=== PATIENT | female | born 1980 | race African-American/Black ===

== ENCOUNTER 2017-10-20 09:43 | Observation (INO) | payer OTHER ==
[~2017-10-20] VITALS: Ht 170.2 cm; Wt 134.8 kg
[2017-10-20] MEDS ORDERED: CLONIDINE HCL 0.2 MG TAB PO ONE (10:15)
[2017-10-20 10:33] LABS: BASOPHILS % 0.4 % (0.0-1.0); EOSINOPHILS # (AUTO) 0.3 (0.0-0.4); EOSINOPHILS % 3.1 % (0.0-6.0); HEMATOCRIT 32.9 % (34.2-44.1); HEMOGLOBIN 10.4 g/dL (12.0-16.0); LYMPHOCYTES # (AUTO) 3.3 (1.0-3.2); LYMPHOCYTES % 32.8 % (18.0-39.1); MEAN CORPUSCULAR HEMOGLOBIN 28.2 pg (28-32); MEAN CORPUSCULAR HGB CONC 31.6 g/dL (31-35); MEAN CORPUSCULAR VOLUME 89.2 fL (81-99); MONOCYTES % 10.3 % (4.4-11.3); NEUTROPHILS # (AUTO) 5.4 (2.1-6.9); NEUTROPHILS % 53.2 % (38.7-80.0); PLATELET COUNT 387 x10e3/uL (140-360); RED BLOOD COUNT 3.69 x10e6/uL (3.6-5.1); RED CELL DISTRIBUTION WIDTH 15.1 % (11.7-14.4)
[2017-10-20 10:53] LABS: CALCIUM 9.3 mg/dL (8.4-10.2); CREATININE, SERUM 3.33 mg/dL (0.57-1.11)
--- NOTE | 2017-10-20 11:46 | Diagnostic Imaging Report ---
PROCEDURE:KNEE RIGHT THREE VIEWS TECHNIQUE:AP, lateral and oblique views right knee INDICATION:Twisted right knee COMPARISON:None. FINDINGS: The right in image regional skeleton are intact and in anatomic alignment. Enthesopathy of the patella and medial tibial spine. Small effusion. CONCLUSION: Enthesopathy without evidence of fracture or traumatic malalignment. Small joint effusion. Dictated by: Pa Quinteros M.D. on 10/20/2017 at 11:48 Electronically approved by: Pa Quinteros M.D. on 10/20/2017 at 11:48
--- OUTSIDE RECORDS SUMMARY | 2017-10-20 11:54 | XMS REPORT ---
Author [facility] Address Unknown Phone Unavailable Care Team Providers Care Explosive Ordnance Handler Name Role Phone CLARA ASTUDILLO Unavailable Unavailable Problems This patient has no known problems. Allergies, Adverse Reactions, Alerts This patient has no known allergies or adverse reactions. Medications This patient has no known medications. Results Test Description Test Time Test Comments Text Results Atomic Results Result Comments KNEE RIGHT THREE VIEWS [place] [address] Patient Name: EDDIE RIVERO MR #: [id number] : 1980 Age/Sex: 36/F Req #: [id number] [facility] [place] Physician: Ordered by: CRYSTAL WEBBER [employer]' COORDINATOR Report #: [id number] Location: ER Room/Bed: Procedure: [id number] DX/KNEE RIGHT THREE VIEWS Exam Date: 10/20/17 Exam Time: 1040 REPORT STATUS: Signed PROCEDURE: KNEE RIGHT THREE VIEWS TECHNIQUE: AP, lateral and oblique views right knee INDICATION: Twisted right knee COMPARISON: None. FINDINGS: The right in image regional skeleton are intact and in anatomic alignment. Enthesopathy of the patella and medial tibial spine. Small effusion. CONCLUSION: Enthesopathy without evidence of fracture or traumatic malalignment. Small joint effusion. Dictated by: Sarah Quinteros M.D. on 10/20/2017 at 11:48 Electronically approved by: Sarah Quinteros M.D. on 10/20/2017 at 11:48 Dictated By: SARAH QUINTEROS MD [id number] Transcribed By: NAVIN on 10/20/17 1148 COPY TO: CRYSTAL WEBBER NP
[2017-10-20 13:15] VITALS: BP 145/69
[2017-10-20 15:39] VITALS: BP 131/71
[2017-10-20] MEDS ORDERED: CLONIDINE HCL 0.1 MG TAB PO PRN (15:45)
[2017-10-20] MEDS ORDERED: SODIUM CHLORIDE 0.9% 500ML 500 ML IV ONE (15:45)
[2017-10-20] MEDS: NIFEDIPINE CR 30 MG TAB PO SCH (16:07)
[2017-10-20 19:55] VITALS: BP 136/91
[2017-10-20 21:49] VITALS: BP 136/91
[2017-10-21] VITALS: BP 147/98
[2017-10-21 05:00] VITALS: BP 124/74
[2017-10-21] MEDS: ACETAMINOPHEN 325 MG TAB PO PRN ×2 (06:21→11:30)
[2017-10-21 06:54] LABS: ANION GAP 11.2 mmol/L (8-16); CALCIUM 9.3 mg/dL (8.4-10.2); CREATININE, SERUM 3.34 mg/dL (0.57-1.11); POTASSIUM 5.2 mmol/L (3.5-5.1)
[2017-10-21 08:13] VITALS: BP 148/91
[2017-10-21] MEDS: NIFEDIPINE CR 30 MG TAB PO SCH (09:27)
[2017-10-21 12:15] VITALS: BP 148/93
[2017-10-21] MEDS ORDERED: PROCARDIA XL30 MG PO (13:39)
[2017-10-21 15:00] VITALS: BP 150/98
--- NOTE | 2017-10-22 14:34 | Discharge Summary ---
PRIMARY CARE DOCTOR: Dr. Maggy Carter with [facility]. FINAL DIAGNOSIS: Right knee sprain. SECONDARY DIAGNOSES 1. Stage 4 chronic kidney disease due to chronic hypertension. 2. 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 3. Uncontrolled hypertension, better. CONSULTANTS: None. PROCEDURES/STUDIES PERFORMED: None. HISTORY: Per [facility] HOSPITAL COURSE: Empirically, the patient received some IV fluids, however this did not really change her creatinine. Her estimated GFR hovers around 16 to 19. The patient initially came in with a systolic blood pressure of 190. Currently with nifedipine XL 30 mg daily, her systolic blood pressure is in the 140s now. I have the patient and her family that at this time we do not want to shoot for a normal blood pressure of 120. The patient already has a dental financial coordinator, she will follow up as soon as possible. The patient was seen and examined today. CONDITION ON DISCHARGE: Stable. DISCHARGE MEDICATIONS: Please see medication reconciliation form. JOEY DURAN M.D. Job#: [id number] GE cc:MAGGY CARTER MD
== END 2017-10-21 15:39 | disposition home or self-care (01) ==
LOC: ER 09:43 → ERHOLD 11:52 → INTOOBSV 11:52 → IMCU 12:31
PROVIDERS: ADMIT Internal Medicine; ATTEND Internal Medicine
DX: I16.0 Hypertensive urgency (principal); N17.9 Acute kidney failure, unspecified; M25.461 Effusion, right knee; S83.411A Sprain of medial collateral ligament of right knee, initial encounter; X50.1XXA Overexertion from prolonged static or awkward postures, initial encounter; I13.10 Hypertensive heart and chronic kidney disease without heart failure, with stage 1 through stage 4 chronic kidney disease, or unspecified chronic kidney disease; N18.4 Chronic kidney disease, stage 4 (severe); Z90.5 Acquired absence of kidney
CPT/HCPCS: 29799; 36415 ×2; 73562; 80048 ×2; 85025; 93005; 99284; G0378 ×2; J7040

== ENCOUNTER 2018-07-02 10:46 | Emergency (ER) | payer OTHER ==
[~2018-07-02] VITALS: Ht 170.2 cm; Wt 134.7 kg
[~2018-07-02 10:46] MED LIST: PROCARDIA XL30 MG PO
--- OUTSIDE RECORDS SUMMARY | 2018-07-02 10:48 | XMS REPORT | Clinical Summary ---
Author Author [facility] Address Unknown Phone Unavailable Care Team Providers Care Coding And Reimbursement Specialist Name Role Phone Maggy Ro MD PCP Abdon Mccray MD 3 Jem Chavez MD 3 Tierney Aguirre Unavailable Allergies Not on File Medications Not on file Active Problems Not on file Encounters Care Team Description Date Type Specialty Nellie 03/29/2018 Abstract Transplant Nellie 03/29/2018 Abstract Transplant after 07/01/2017 Social History Date Tobacco Use Types Packs/Day Years Used Never Smoker Sex Assigned at Date Recorded Not on file Industry Job Start Date Occupation Not on file Not on file Not on file Travel End Travel History Travel Start No recent travel history available. Last Filed Vital Signs Time Taken Vital Sign Reading - Blood Pressure - - Pulse - - Temperature - - Respiratory Rate - - Oxygen Saturation - - Inhaled Oxygen - Concentration 03/29/2018 3:09 PM BUILDING RENTAL MANAGER Weight 140.6 kg (310 lb) 03/29/2018 3:09 PM BUILDING RENTAL MANAGER Height 170.2 cm (5' 7") 03/29/2018 3:09 PM BUILDING RENTAL MANAGER Body Mass Index 48.55 Plan of Treatment Not on file Results Not on fileafter 07/01/2017 Insurance Payer Benefit Subscriber ID Type Phone Address Plan / Group [facility] xxxxxxxxxxxxx [phone] [facility]
== END 2018-07-02 11:09 | disposition home or self-care (01) ==
LOC: ER 10:46
DX: K08.89 Other specified disorders of teeth and supporting structures (principal); K02.9 Dental caries, unspecified; K04.7 Periapical abscess without sinus
CPT/HCPCS: 99282

== ENCOUNTER 2019-04-02 11:34 | Emergency (ER) | payer SELFPAY ==
[~2019-04-02] VITALS: Ht 170.2 cm; Wt 134.7 kg
[2019-04-02] MEDS ORDERED: SODIUM CHLORIDE 0.9% 1000ML 1,000 ML IV STA (12:06)
[2019-04-02] MEDS ORDERED: NIFEDIPINE CR 30 MG TAB PO ONE (12:15)
[2019-04-02 12:40] LABS: BILIRUBIN,URINE NEGATIVE (NEGATIVE); CLARITY,URINE CLEAR (CLEAR); COLOR,URINE YELLOW (YELLOW); KETONES,URINE NEGATIVE (NEGATIVE); LEUKOCYTE ESTERASE ,URINE NEGATIVE (NEGATIVE); NITRITE,URINE NEGATIVE (NEGATIVE); PREGNANCY TEST, URINE NEGATIVE (NEGATIVE); PROTEIN,URINE DIPSTICK 2+ (NEGATIVE); URINE UROBILINOGEN 0.2 mg/dL (0.2 - 1)
[2019-04-02 13:01] LABS: AMORPHOUS SEDIMENT,URINE FEW (FEW); BACTERIA,URINE MODERATE /HPF; EPITHELIAL CELLS,URINE MODERATE /LPF
[2019-04-02 13:51] LABS: BASOPHILS % 0.2 % (0.0-1.0); EOSINOPHILS # (AUTO) 0.5 (0.0-0.4); EOSINOPHILS % 5.3 % (0.0-6.0); HEMATOCRIT 29.6 % (34.2-44.1); LYMPHOCYTES % 31.5 % (18.0-39.1); MEAN CORPUSCULAR HEMOGLOBIN 27.5 pg (28-32); MEAN CORPUSCULAR HGB CONC 30.4 g/dL (31-35); MEAN CORPUSCULAR VOLUME 90.5 fL (81-99); MONOCYTES % 10.7 % (4.4-11.3); PLATELET COUNT 356 x10e3/uL (140-360); RED BLOOD COUNT 3.27 x10e6/uL (3.6-5.1); RED CELL DISTRIBUTION WIDTH 16.1 % (11.7-14.4)
[2019-04-02 14:13] LABS: ALBUMIN 3.2 g/dL (3.5-5.0); ALBUMIN/GLOBULIN RATIO 0.9 (0.8-2.0); ANION GAP 9.9 mmol/L (8-16); CALCIUM 9.3 mg/dL (8.4-10.2); CREATININE, SERUM 5.15 mg/dL (0.57-1.11); MAGNESIUM 1.9 MG/DL (1.3-2.1); POTASSIUM 4.9 mmol/L (3.5-5.1)
--- NOTE | 2019-04-02 15:48 | Diagnostic Imaging Report ---
CT of the abdomen and pelvis, without contrast, 04/02/2019. History: Abdominal pain. Comparison: None available. Technique: Multidetector CT scanning of the abdomen and pelvis was performed from the level of the lung bases to the inferior pubic rami without intravenous or oral contrast. Coronal and sagittal multiplanar reformations were obtained. RADIATION DOSE: Total DLP: 811 mGy*cm Dose modulation, iterative reconstruction, and/or weight based adjustment of the mA/kV was utilized to reduce the radiation dose to as low as reasonably achievable. Discussion: Examination is limited without contrast. Lung bases: No visualized abnormalities. Abdomen: The right kidney is absent. Left kidney is normal in position and size. No evidence of left nephrolithiasis or hydronephrosis. The liver, gallbladder, biliary tree, spleen, pancreas, and adrenal glands are unremarkable. The abdominal aorta is within normal limits. The appendix is visualized and is normal. There is no bowel dilatation. There is no evidence of adenopathy or free fluid. A tiny fat-containing umbilical hernia is present. Pelvis: The bladder, uterus, and adnexa are unremarkable. Calcified phleboliths are present bilaterally. There is no evidence of free fluid or adenopathy. Bones and soft tissues: Advanced degenerative changes are present at L4-L5 without evidence of lytic or sclerotic lesion. IMPRESSION: Absent right kidney. No evidence of left-sided nephrolithiasis or hydronephrosis. Otherwise unremarkable noncontrast exam. Signed by: Db Arrington on 04/02/2019 3:45 PM
[2019-04-02 16:10] VITALS: BP 168/94
--- NOTE | 2019-04-02 16:15 | Diagnostic Imaging Report ---
Chest, 1 view, 04/02/2019. History: Renal failure. Comparison: None available. Findings: The cardiomediastinal silhouette and pulmonary vasculature are within normal limits for a portable exam. There is no focal consolidation or pleural effusion. There are no acute osseous or soft tissue abnormalities. Impression: No acute cardiopulmonary abnormality. Signed by: Db Arrington on 04/02/2019 4:12 PM
[2019-04-02 17:26] LABS: EOSINOPHILS % (MANUAL) 6 % (0-7); LYMPHOCYTES % (MANUAL) 26 % (19-48); MONOCYTES % (MANUAL) 7 % (3.4-9.0); NEUTROPHILS % (MANUAL) 61 % (40-74); RBC MORPHOLOGY COMMENT NORMAL
[2019-04-02 17:27] LABS: HYPOCHROMASIA MODERATE
[2019-04-02 18:42] LABS: PLATELET ESTIMATE ADEQUATE; PLATELET MORPHOLOGY COMMENT NORMAL
== END 2019-04-02 16:46 | disposition home or self-care (01) ==
LOC: ER 11:34
DX: R10.32 Left lower quadrant pain (principal); R11.0 Nausea; I10 Essential (primary) hypertension; N28.9 Disorder of kidney and ureter, unspecified
CPT/HCPCS: 36415; 71045; 74176; 80053; 81001; 81025; 83690; 83735; 85025; 87086; 99284; J7030